=== PATIENT | female | born 1955 | race Hispanic/Latino ===

== ENCOUNTER → 2022-04-04 | Day surgery (SDC) | payer MEDICARE ==
[~2022-04-04] MED LIST: CARVEDILOL12.5 MG PO; CONSTULOSE10 GM/15 M PO; FOSRENOL500 MG PO; GLIMEPIRIDE2 MG PO; HYDRALAZINE HC100 MG PO; MULTI-VITAMIN1 EACH PO; ZINC CHELATED50 M2 PO
== END | disposition home or self-care (01) ==
LOC: OR 07:03
PROVIDERS: ATTEND Internal Medicine Gastroenterology
DX: Z12.11 Encounter for screening for malignant neoplasm of colon (principal); K59.00 Constipation, unspecified; K74.60 Unspecified cirrhosis of liver; E11.22 Type 2 diabetes mellitus with diabetic chronic kidney disease; I12.0 Hypertensive chronic kidney disease with stage 5 chronic kidney disease or end stage renal disease; N18.5 Chronic kidney disease, stage 5; D64.9 Anemia, unspecified; Z01.810 Encounter for preprocedural cardiovascular examination; Z99.2 Dependence on renal dialysis; Z85.3 Personal history of malignant neoplasm of breast; Z92.21 Personal history of antineoplastic chemotherapy; Z90.10 Acquired absence of unspecified breast and nipple
CPT/HCPCS: 36415; 45378; 82948; 93005